=== PATIENT | male | born 1985 | race Caucasian/White ===

== ENCOUNTER 2020-10-13 08:27 | Outpatient (NON) | payer OTHER, SELFPAY ==
[2020-10-13 16:56] LABS: SARS-CoV-2 RNA PCR Positive
== END 2020-10-13 08:28 ==
PROVIDERS: Visit Provider Internal Medicine
DX: U07.1 COVID-19 (principal); R68.89 Other general symptoms and signs
CPT/HCPCS: C9803; U0003; U0005

== ENCOUNTER 2022-01-24 07:40 | Emergency (ER) | payer OTHER, SELFPAY ==
--- NOTE | ~2022-01-24 | XR_ITS ---
XR chest 1V portable DATE: 01/24/2022 08:30 INDICATION: Chest pain, diaphoresis. Near-syncope. TECHNIQUE: Portable AP chest on 01/24/2022 at 0824 hours COMPARISON: None FINDINGS: Normal heart size. No pulmonary infiltrate or consolidation, pleural effusion or pulmonary vascular congestion or pneumothorax. No hilar or mediastinal enlargement. IMPRESSION: No active cardiopulmonary disease Reviewed, dictated and finalized at location B.
[2022-01-24 07:45] VITALS: BP 161/92; PULSE 88; RESP 16; TEMP 35.9; O2SAT 99
[2022-01-24 07:59] LABS: Glucose Point of Care 135 mg/dl (65-105)
--- NOTE | 2022-01-24 08:16 | ECG_ITS ---
Measurements Intervals [place] Rate: 76 P: 43 RI: 163 QRS: 11 QRSD: 98 T: 5 QT: 340 QTc: 384 Interpretive Statements SINUS RHYTHM BORDERLINE R WAVE PROGRESSION, ANTERIOR LEADS INFERIOR INFARCT, AGE INDETERMINATE ABNORMAL ECG Electronically Signed On 01-24-2022 8:45:53 CDT by Ashok Stewart D.O.
--- NOTE | 2022-01-24 08:19 | ED.WEAKNESS ---
HPI - Weakness General Chief complaint: Weakness Stated complaint: COLD SWEAT AND DOESN'T FEEL WELL Time Seen by Provider: 01/24/22 07:43 Source: patient and RN notes reviewed Mode of arrival: ambulatory Limitations: no limitations History of Present Illness Complaint: generalized weakness and tingling Onset (ago): hour(s) (1) Duration: intermittent Location: generalized Migration: none Severity: mild Quality: tingling and other (pt was pain-free) Relieving factors: none Exacerbating factors: none Context: recent illness Related Data Home Medications Medication Instructions Recorded Confirmed No Home Medications 01/24/22 01/24/22 Allergies Allergy/AdvReac Type Severity Reaction Status Date / Time guaifenesin Allergy Unknown HIVES Verified 01/24/22 08:07 Review of Systems Review of Systems: All systems reviewed & are unremarkable except as noted in HPI and below PMFSH Past Medical History Medical History (Updated 01/24/22 @ 09:32 by Marylou Mendez MD) Heat cramp, sequela Exam Const: General: no acute distress and alert Nutritional Appearance: well nourished Orientation/consciousness: patient oriented x3 Limitations: no limitations HENMT: Head: normal to inspection Ears: external ears normal, TM's normal bilaterally and EAC's normal General nose exam: Normal external nose present and Normal nares present Face and sinus: sinuses nontender Mouth: Yes moist mucous membranes Eyes: Conjunctivae: conjunctivae normal Pupils: Equal, round and reactive pupils present EOM: EOMs intact bilaterally Neck: Neck: normal visual inspection and no lymphadenopathy Chest: Chest palpation & inspection: normal inspection of the chest Resp: Effort & Inspection: normal respiratory effort Auscultation: clear to auscultation bilaterally Cardio: Rate: regular rate Rhythm: regular rhythm GI: GI Palp: Yes Soft to palpation and No Tenderness to palpation present (GI) Auscultation: normal bowel sounds : General: Yes bladder normal to palpation and Yes no CVA tenderness Male General Exam: Yes normal external exam Testes: Testes normal Back/Spine/Pelvis: Back: no CVA tenderness Skin: General skin exam: normal color Rashes: no rashes Neuro: General: patient oriented x3, moves all extremities, no meningeal signs, no focal motor deficits and CN's II-XI intact bilaterally Extrem: General: normal to inspection and no pedal edema Psych: Appearance: grossly normal and well kempt Mental Status: mental status grossly normal Affect: normal affect Attitude: cooperative Thought content: Yes Normal thought content present Course Course Emergency Course: pt was comfortable in the ED. Reevaluation(s) Reevaluation #1: VSS. Date: 01/24/22 Time: 08:41 Vital Signs Vital signs: Vital Signs Temperature 35.9 C L 01/24/22 07:45 Pulse Rate 88 01/24/22 07:45 Respiratory Rate 16 01/24/22 07:45 Blood Pressure 161/92 H 01/24/22 07:45 Pulse Oximetry 99 01/24/22 07:45 Temperature 35.9 C L 01/24/22 07:45 Pulse Rate 88 01/24/22 07:45 Respiratory Rate 16 01/24/22 07:45 Blood Pressure 161/92 H 01/24/22 07:45 Pulse Oximetry 99 01/24/22 07:45 MDM - Weakness Differential Diagnosis Differential diagnosis: Likely anemia, rhabdomyolysis and dehydration Medical Records Attestation: I reviewed the patient's medical records. Lab Data Attestation: I reviewed the patient's lab results. Labs: Lab Results 01/24/22 Range/Units 07:56 POC Capillary Glucose 135 H (65-105) mg/dl Imaging Data Radiologist's impression: See the report. Critical Care Time Critical Care Time Critical Care Time: No Total Critical Care Time: 0 Discharge Plan Discharge Clinical Impression: Heat cramp, sequela Patient Disposition: Home, Self-Care Condition: Stable Instructions: Antibiotic Form, Heat Exhaustion (ED) Additional Instructions: Home. May RTC prn. PMD in 1-2 days. No Rx. P
[2022-01-24] MEDS: SODIUM CHLORIDE 0.9% IV 1,000 ML 999 ML IV CONT (08:32)
[2022-01-24 08:36] LABS: Basophils Absolute Auto 0.06 K/mm3 (0.00-0.10); Basophils Percent Auto 0.7 % (0.0-1.0); Eosinophils Absolute Auto 0.04 K/mm3 (0.02-0.50); Eosinophils Percent Auto 0.5 % (1.0-6.0); Hematocrit 46.1 % (40.0-54.0); Hemoglobin 16.2 g/dL (14.0-18.0); Immature Granulocyte Absolute 0.04 K/mm3 (0.00-0.00); Immature Granulocyte Percent A 0.5 % (0.0-0.0); Lymphocytes Absolute Auto 1.14 K/mm3 (1.10-4.50); Lymphocytes Percent Auto 14.2 % (18.0-42.0); Mean Corpuscular HGB Conc 35.1 g/dL (32.0-36.0); Mean Corpuscular Volume 93.9 fL (78.0-102.0); Mean Platelet Volume 9.1 fl (8.7-11.0); Monocytes Absolute Auto 0.46 K/mm3 (0.10-0.90); Monocytes Percent Auto 5.7 % (2.0-11.0); Neutrophils Absolute Auto 6.3 K/mm3 (1.7-7.2); Neutrophils Percent Auto 78.4 % (50.0-70.0); Platelet Count Result 230 K/mm3 (150-420); Red Blood Count 4.91 M/mm3 (4.70-6.10); Red Cell Distribution Width 11.5 % (11.6-14.4)
[2022-01-24 08:37] LABS: Add Urine Microscopic? NO; Appearance Urine Clear (Clear); Bilirubin Urine Negative (Negative); Blood Urine Negative (Negative); Color Urine Light Yellow (Yellow); Glucose Urine UA Negative (Negative); Ketones Urine Negative (Negative); Leukocyte Esterase Ur Negative (Negative); Nitrate Urine Negative (Negative); Protein Urine Negative (Negative); Specific Grav Ur <= 1.005 (1.010-1.020); Urobilinogen Urine 0.2 mg/dL (0.2-1.0)
[2022-01-24 08:46] LABS: Amphetamine Screen Urine Negative (Negative); Barbiturate Screen Urine Negative (Negative); Benzodiazepines Screen Urine Negative (Negative); Cannabinoid Screen Urine Negative (Negative); Cocaine Screen Urine Negative (Negative); Methadone Screen Urine Negative (Negative); Opiate Screen Urine Negative (Negative); Phencyclidine Screen Urine Negative (Negative)
[2022-01-24 08:53] LABS: Alanine Aminotransferase 77 U/L (16-63); Albumin Level 4.1 g/dL (3.4-5.0); Alkaline Phosphatase 69 U/L (46-116); Anion Gap 7 mmol/L (8-16); Aspartate Amino Transferase 22 U/L (15-37); Bilirubin,Total 0.6 mg/dL (0.00-1.00); Blood Urea Nitrogen 12 mg/dL (7-18); Calcium 8.5 mg/dL (8.5-10.1); Carbon Dioxide 29 mmol/L (21-32); Chloride 103 mmol/L (98-108); Estimated CRCL calculation 110 ml/min; Estimated Glomerular Filt Rate > 60; Ethanol 3 mg/dL (0-6); Glucose 143 mg/dL (70-99); Osmolality Calculated 289 mOsm/kg (285-295); Potassium 3.7 mmol/L (3.5-5.1); Sodium 139 mmol/L (136-145); Total Protein 7.4 g/dL (6.4-8.2); Troponin I 4.9 ng/L (0.00-60.4)
[2022-01-24 09:00] VITALS: BP 153/78; PULSE 71; RESP 16; TEMP 36.6; O2SAT 100
[2022-01-24 09:35] VITALS: BP 154/81; PULSE 80; RESP 16; TEMP 36.7; O2SAT 98
== END 2022-01-24 09:42 | disposition home or self-care (01) ==
PROVIDERS: Emergency Provider Emergency Medicine
DX: T67.2XXA Heat cramp, initial encounter (principal)
CPT/HCPCS: 71045; 80053; 80307; 81003; 82948; 84484; 85025; 93005; 96360; 99284; J7030

== ENCOUNTER 2022-01-25 14:47 | Outpatient (CLI) | payer OTHER, SELFPAY ==
[2022-01-25 15:19] LABS: Hemoglobin A1C 5.2 % (<5.7)
[2022-01-25 15:32] LABS: Alanine Aminotransferase 74 U/L (16-63); Albumin Level 4.1 g/dL (3.4-5.0); Alkaline Phosphatase 70 U/L (46-116); Anion Gap 6 mmol/L (8-16); Aspartate Amino Transferase 21 U/L (15-37); Bilirubin,Total 0.6 mg/dL (0.00-1.00); Blood Urea Nitrogen 12 mg/dL (7-18); Calcium 8.9 mg/dL (8.5-10.1); Carbon Dioxide 30 mmol/L (21-32); Chloride 105 mmol/L (98-108); Cholesterol 226 mg/dL (0-200); Estimated Glomerular Filt Rate > 60; Glucose 105 mg/dL (70-99); HDL Direct 30 mg/dL (40-60); LDL Cholesterol Calculated 104 mg/dL (<130); Osmolality Calculated 291 mOsm/kg (285-295); Potassium 3.9 mmol/L (3.5-5.1); Sodium 141 mmol/L (136-145); Total Protein 7.6 g/dL (6.4-8.2); Triglycerides 460 mg/dL (0-150)
[2022-01-25 15:35] LABS: LDL Cholesterol Direct 132 mg/dL (0-130)
== END 2022-01-25 14:48 | disposition home or self-care (01) ==
LOC: CHSLAB 14:54
PROVIDERS: PCP Family Medicine; Visit Provider Family Medicine
DX: R74.01 Elevation of levels of liver transaminase levels (principal); R73.09 Other abnormal glucose; R03.0 Elevated blood-pressure reading, without diagnosis of hypertension
CPT/HCPCS: 36415; 80053; 80061; 83036; 83721

== ENCOUNTER 2022-01-26 08:59 | Emergency (ER) | payer OTHER, SELFPAY ==
--- NOTE | ~2022-01-26 | XR_ITS ---
EXAMINATION: XR chest 1V portable INDICATION: Heart palpitations TECHNIQUE: Portable AP chest at 1034 hours COMPARISON: 01/24/2022 FINDINGS: The lungs are free of acute opacities. There is no pleural effusion or pneumothorax. The ca rdiomediastinal silhouette is normal. 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 IMPRESSION: 1. No acute cardiopulmonary abnormality. Reviewed, dictated and finalized at location A.
--- NOTE | ~2022-01-26 | CT_ITS ---
EXAMINATION: CT brain wo con DATE: 01/26/2022 10:39 INDICATION: Syncope for 3 days. Hypertension. TECHNIQUE: Computed tomography (CT) of the head was performed without intravenous contrast. The mA wa s adjusted according to patient size. Iterative reconstruction technique was employed. Exam dose: 60 5.33 mGy-cm total exam DLP. COMPARISON: None FINDINGS: No intracranial mass lesion or hemorrhage or cerebrovascular accident is evident. No midlin e shift or mass effect effect. Normal ventricular size. Normal gomes-white matter differentiation. No subdural or epidural hematoma. The mastoid air cells and included paranasal sinuses are normally developed and aerated. No fracture or bone destruction of the cranial vault. IMPRESSION: No significant abnormality Reviewed, dictated and finalized at Location [facility]. Reviewed, dictated and finalized at location B. IMPRESSION: No significant abnormality
[2022-01-26 09:15] VITALS: BP 157/105; PULSE 77; RESP 20; TEMP 36.1; O2SAT 100
[2022-01-26] MEDS: SODIUM CHLORIDE 0.9% IV 1,000 ML 999 ML IV CONT ×2 (09:45→10:30)
--- NOTE | 2022-01-26 09:56 | ECG_ITS ---
Measurements Intervals [place] Rate: 79 P: 48 [place]V: 151 QRS: 17 QRSD: 102 T: 11 QT: 366 QTc: 420 Interpretive Statements SINUS RHYTHM DELAYED PRECORDIAL R/S TRANSITION CONSIDER INFERIOR INFARCT, AGE INDETERMINATE ABNORMAL ECG Electronically Signed On 01-26-2022 11:12:00 CDT by Ashok Stewart D.O.
--- NOTE | 2022-01-26 09:57 | PC.NURSE ---
pt feeling flush and heart thumping, erp notified. ekg ordered.
[2022-01-26 10:08] LABS: Basophils Absolute Auto 0.05 K/mm3 (0.00-0.10); Basophils Percent Auto 0.6 % (0.0-1.0); Eosinophils Absolute Auto 0.06 K/mm3 (0.02-0.50); Eosinophils Percent Auto 0.7 % (1.0-6.0); Hematocrit 45.5 % (40.0-54.0); Hemoglobin 16.4 g/dL (14.0-18.0); Immature Granulocyte Absolute 0.03 K/mm3 (0.00-0.00); Immature Granulocyte Percent A 0.4 % (0.0-0.0); Lymphocytes Absolute Auto 2.21 K/mm3 (1.10-4.50); Mean Corpuscular Hemoglobin 32.9 pg (27.0-31.0); Mean Corpuscular Volume 91.4 fL (78.0-102.0); Monocytes Absolute Auto 0.74 K/mm3 (0.10-0.90); Neutrophils Absolute Auto 5.1 K/mm3 (1.7-7.2); Neutrophils Percent Auto 62.3 % (50.0-70.0); Platelet Count Result 258 K/mm3 (150-420); Red Blood Count 4.98 M/mm3 (4.70-6.10); Red Cell Distribution Width 11.4 % (11.6-14.4); White Blood Count 8.2 K/mm3 (4.8-10.8)
[2022-01-26 10:21] LABS: Alanine Aminotransferase 78 U/L (16-63); Albumin Level 4.2 g/dL (3.4-5.0); Alkaline Phosphatase 71 U/L (46-116); Anion Gap 7 mmol/L (8-16); Aspartate Amino Transferase 24 U/L (15-37); Bilirubin,Total 0.8 mg/dL (0.00-1.00); Blood Urea Nitrogen 15 mg/dL (7-18); Calcium 8.6 mg/dL (8.5-10.1); Carbon Dioxide 30 mmol/L (21-32); Chloride 101 mmol/L (98-108); Estimated Glomerular Filt Rate > 60; Glucose 117 mg/dL (70-99); Lipase 102 U/L (73-393); Osmolality Calculated 287 mOsm/kg (285-295); Potassium 3.6 mmol/L (3.5-5.1); Sodium 138 mmol/L (136-145); Total Protein 7.7 g/dL (6.4-8.2); Troponin I 4.2 ng/L (0.00-60.4)
[2022-01-26 10:22] LABS: Ethanol < 3 mg/dL (0-6)
--- NOTE | 2022-01-26 11:29 | ED.DIZZY ---
HPI - Dizziness General Chief Complaint: Dizziness Stated Complaint: LIGHT HEADED FEELS LIKE PASSING OUT Time Seen by Provider: 01/26/22 09:02 Source: patient and RN notes reviewed Mode of arrival: ambulatory Limitations: no limitations History of Present Illness MD elicited complaint: dizziness and lightheadedness Onset (ago): day(s) (1) Severity: moderate Description: lightheadedness and off-balance History of similar symptoms: No Exacerbating factors: nothing Relieving factors: nothing Associated symptoms: nausea Associated neuro symptoms: limb weakness Stroke scale total: 0 Related Data Allergies Allergy/AdvReac Type Severity Reaction Status Date / Time guaifenesin Allergy Unknown HIVES Verified 02/02/22 07:12 Review of Systems Review of Systems: All systems reviewed & are unremarkable except as noted in HPI and below PMFSH Past Medical History Medical History Dizziness and giddiness Elevated BP without diagnosis of hypertension Elevated glucose Heat cramp, sequela Surgical History Surgical History H/O vasectomy 2018 Exam Const: General: no acute distress Nutritional Appearance: well nourished Orientation/consciousness: patient oriented x3 Limitations: no limitations HENMT: Head: normal to inspection Ears: TM's normal bilaterally and EAC's normal General nose exam: Normal external nose present and Normal nares present Face and sinus: normal facial exam and sinuses nontender Mouth: Yes Normal oral and palatal mucosa present, Yes lip normal and Yes moist mucous membranes Teeth and gingiva: dentition normal Throat: posterior oropharynx normal Eyes: Conjunctivae: conjunctivae normal Pupils: Equal, round and reactive pupils present EOM: EOMs intact bilaterally Neck: Neck: normal visual inspection Chest: Chest palpation & inspection: normal inspection of the chest Resp: Effort & Inspection: normal respiratory effort Auscultation: clear to auscultation bilaterally Cardio: Rate: regular rate Rhythm: regular rhythm GI: GI Palp: Yes Soft to palpation and No Tenderness to palpation present (GI) Auscultation: normal bowel sounds : General: Yes bladder normal to palpation Back/Spine/Pelvis: Back: no CVA tenderness Skin: General skin exam: normal color Rashes: no rashes Neuro: General: patient oriented x3, moves all extremities, no meningeal signs and CN's II-XI intact bilaterally Cranial nerves: Yes Nystagmus not present Speech: normal speech Gait exam (Neuro): Normal gait present Extrem: General: normal to inspection Psych: Mental Status: mental status grossly normal Affect: normal affect Attitude: cooperative Course Course Emergency Course: Pt was stable in the ED. less light-headedness, pt wanted to go home. Reevaluation(s) Reevaluation #1: VSS Date: 01/26/22 Time: 09:55 Vital Signs Vital signs: Vital Signs Temperature 36.1 C L 01/26/22 09:15 Pulse Rate 77 01/26/22 09:15 Respiratory Rate 20 01/26/22 09:15 Blood Pressure 157/105 H 01/26/22 09:15 Pulse Oximetry 100 01/26/22 09:15 Oxygen Delivery Room Air 01/26/22 09:15 Temperature 36.6 C 01/26/22 13:26 Pulse Rate 89 01/26/22 13:26 Respiratory Rate 20 01/26/22 13:26 Blood Pressure 156/104 H 01/26/22 13:26 Pulse Oximetry 97 01/26/22 13:26 Oxygen Delivery Room Air 01/26/22 13:26 MDM - Dizziness Differential Diagnosis Differential diagnosis: Likely benign paroxysmal positional vertigo, orthostatic hypotension and transient cerebral ischemia Medical Records Attestation: I reviewed the patient's medical records. Lab Data Attestation: I reviewed the patient's lab results. Result diagrams: 01/26/22 09:57 01/26/22 09:57 Labs: Lab Results 01/26/22 01/26/22 01/26/22 Range/Units 09:57 09:57 09:57 WBC 8.2 (4.8-10.8) K/mm3 RBC 4.98
[2022-01-26 11:34] LABS: Amphetamine Screen Urine Negative (Negative); Barbiturate Screen Urine Negative (Negative); Benzodiazepines Screen Urine Negative (Negative); Cannabinoid Screen Urine Negative (Negative); Cocaine Screen Urine Negative (Negative); Methadone Screen Urine Negative (Negative); Opiate Screen Urine Negative (Negative); Phencyclidine Screen Urine Negative (Negative)
[2022-01-26 11:35] LABS: Add Urine Microscopic? NO; Appearance Urine Clear (Clear); Bilirubin Urine Negative (Negative); Blood Urine Negative (Negative); Color Urine Light Yellow (Yellow); Glucose Urine UA Negative (Negative); Ketones Urine Negative (Negative); Leukocyte Esterase Ur Negative (Negative); Nitrate Urine Negative (Negative); Protein Urine Negative (Negative); Specific Grav Ur <= 1.005 (1.010-1.020); Urobilinogen Urine 0.2 mg/dL (0.2-1.0); pH Urine 6.5 (5.0-8.0)
[2022-01-26] MEDS: cloNIDine HCL 0.2 MG TABLET PO (12:39)
--- NOTE | 2022-01-26 12:41 | ECG_ITS ---
Measurements Intervals [place] Rate: 99 P: 14 [place]: 124 QRS: 17 QRSD: 93 T: -8 QT: 320 QTc: 412 Interpretive Statements SINUS RHYTHM BORDERLINE R WAVE PROGRESSION, ANTERIOR LEADS CONSIDER INFERIOR INFARCT, AGE INDETERMINATE ABNORMAL ECG Electronically Signed On 01-26-2022 13:11:59 CDT by Ashok Stewart D.O.
--- NOTE | 2022-01-26 12:44 | PC.NURSE ---
1235 pt to desk, complaint of pt not feeling well again. pt states heart palpitations, feeling light headed , noted pulse to be 114. has been running 70-90's. notified dr wilson, ekg repeat order placed. discharge pending.
--- NOTE | 2022-01-26 12:54 | PC.NURSE ---
call placed to dr fierro, explained pt episodes of lightheaded and not feeling well when heart rate [address] order for manager monitoring. pt notified of same.
[2022-01-26 13:26] VITALS: BP 156/104; PULSE 89; RESP 20; TEMP 36.6; O2SAT 97
--- NOTE | 2022-01-29 12:59 | WPDHOLTEREM ---
Holter/Event Monitor Holter/Event Monitor Date of procedure: 01/26/22 Holter/Event Procedure: 48 Hr Holter Monitor Indications: Dizziness Conclusion: 1. 48 hour holter monitor on 01/26/22. 2. Underlying rhythm is sinus rhythm. HR range 50-154 bpm; average HR 78 bpm. HR at 154 bpm was at 12:17. 3. There are 13 premature supraventricular complexes and 1 supraventricular couplet. No supraventricular tachycardia. 4. There are 4 premature ventricular complexes. No ventricular tachycardia. 5. No sinoatrial or atrioventricular blocks. No significant pauses greater than 2 seconds. 6. Patient reports symptoms of shakiness, flush, anxiousness which demonstrate sinus rhythm, HR range 76-101 bpm and one PVC.
== END 2022-01-26 13:28 | disposition home or self-care (01) ==
PROVIDERS: Emergency Provider Emergency Medicine; PCP Family Medicine
DX: T67 Effects of heat and light (principal); I10 Essential (primary) hypertension
CPT/HCPCS: 36415; 70450; 71045; 80053; 80307; 81003; 83690; 84484; 85025; 93005; 96360; 96361; 99284; A9270; J7030

== ENCOUNTER 2022-01-26 13:20 | Outpatient (CLI) | payer OTHER, SELFPAY ==
--- NOTE | 2022-01-29 13:02 | HOLTER_ITS ---
This report was moved to the correct visit on 02/16/2022. Original report was signed by Ashok Stewart DO on 01/29/2022 1302. Holter/Event Monitor Holter/Event Monitor Date of procedure: 01/26/22 Holter/Event Procedure: 48 Hr Holter Monitor Indications: Dizziness Conclusion: 1. 48 hour holter monitor on 01/26/22. 2. Underlying rhythm is sinus rhythm. HR range 50-154 bpm; average HR 78 bpm. HR at 154 bpm was at 12:17. 3. There are 13 premature supraventricular complexes and 1 supraventricular couplet. No supraventricular tachycardia. 4. There are 4 premature ventricular complexes. No ventricular tachycardia. 5. No sinoatrial or atrioventricular blocks. No significant pauses greater than 2 seconds. 6. Patient reports symptoms of shakiness, flush, anxiousness which demonstrate sinus rhythm, HR range 76-101 bpm and one PVC. This dictation may have been done utilizing a voice recognition system. Attempts have been made to correct errors. However, there may be uncorrected grammatical, spelling, and recognition errors present. Report Initialized date/time: Ashok Stewart DO 01/29/22 / 1302 Electronically signed by: Ashok Stewart DO 01/29/22 1302 [facility]
== END 2022-01-26 13:21 | disposition home or self-care (01) ==
LOC: CHSLAB 13:23
PROVIDERS: PCP Family Medicine; Visit Provider Family Medicine
DX: R00.0 Tachycardia, unspecified (principal)
CPT/HCPCS: 93225; 93226

== ENCOUNTER 2023-03-07 07:09 | Outpatient (CLI) | payer OTHER, SELFPAY ==
--- NOTE | 2023-03-07 07:11 | ECG_ITS ---
Measurements Intervals [place] Rate: 66 P: 28 PA: 154 QRS: 70 QRSD: 99 T: 16 QT: 360 QTc: 378 Interpretive Statements SINUS RHYTHM COMPARED TO ECG 01/26/2022 12:44:11 NO SIGNIFICANT CHANGES Electronically Signed On 03-07-2023 13:44:03 CDT by Sherrie Thompson M.D.
[2023-03-07 07:28] LABS: Hematocrit 47.2 % (40.0-54.0); Mean Corpuscular Hemoglobin 33.5 pg (27.0-31.0); Mean Corpuscular Volume 92.9 fL (78.0-102.0); Mean Platelet Volume 8.9 fl (8.7-11.0); Platelet Count Result 232 K/mm3 (150-420); Red Blood Count 5.08 M/mm3 (4.70-6.10); Red Cell Distribution Width 11.2 % (11.6-14.4); White Blood Count 6.7 K/mm3 (4.8-10.8)
[2023-03-07 08:14] LABS: Alanine Aminotransferase 69 U/L (16-63); Albumin Level 4.5 g/dL (3.4-5.0); Alkaline Phosphatase 65 U/L (46-116); Anion Gap 6 mmol/L (8-16); Aspartate Amino Transferase 23 U/L (15-37); Blood Urea Nitrogen 20 mg/dL (7-18); Carbon Dioxide 32 mmol/L (21-32); Chloride 104 mmol/L (98-108); Cholesterol 198 mg/dL (0-200); Estimated Glomerular Filt Rate > 60; Glucose 120 mg/dL (70-99); HDL Direct 34 mg/dL (40-60); LDL Cholesterol Calculated 118 mg/dL (<130); Osmolality Calculated 297 mOsm/kg (285-295); Sodium 142 mmol/L (136-145); Thyroid Stimulating Hormone 3.01 uIU/mL (0.36-3.74); Total Protein 7.7 g/dL (6.4-8.2); Triglycerides 228 mg/dL (0-150)
[2023-03-07 10:16] LABS: Bilirubin Direct 0.2 mg/dL (0-0.2)
[2023-03-07 10:19] LABS: Hemoglobin A1C 5.2 % (<5.7)
[2023-03-12 13:27] LABS: Hepatitis A Antibody IgM Nonreactive; Hepatitis B Core Antibody Nonreactive (Nonreactive); Hepatitis B Surface Antigen Nonreactive (Nonreactive); Hepatitis C Virus Antibody Nonreactive
== END 2023-03-07 07:10 | disposition home or self-care (01) ==
LOC: CHSLAB 07:11
PROVIDERS: PCP Nurse Practitioner Family; Visit Provider Nurse Practitioner Family
DX: E78.1 Pure hyperglyceridemia (principal); I10 Essential (primary) hypertension; R00.0 Tachycardia, unspecified; R42 Dizziness and giddiness; R74.01 Elevation of levels of liver transaminase levels
CPT/HCPCS: 36415; 80053; 80061; 80074; 82248; 83036; 84443; 85027; 93005